=== PATIENT | female | born 1995 | race Caucasian/White ===

== ENCOUNTER 2016-07-02 02:44 | Emergency (ER) | payer SELFPAY ==
[~2016-07-02] VITALS: Ht 154.9 cm; Wt 59.1 kg
[~2016-07-02 02:44] MED LIST: BENADRYL25 M2 PO; INTUNIV1 MG PO; NORCO 325 MG-51 TAB PO; PEPCID40 MG PO; PREVPAC; PRIL40 PO; VYVANSE20 MG PO; ZOFRAN ODT4 MG PO
[2016-07-02 02:55] VITALS: BP 85/49; PULSE 92; TEMP 98.4
[2016-07-02] MEDS ORDERED: AMOXICILLIN 50500 MG PO (04:01)
== END 2016-07-02 04:45 | disposition home or self-care (01) ==
LOC: COL.ER 02:44
DX: K08.89 Other specified disorders of teeth and supporting structures (principal)

== ENCOUNTER 2016-07-06 13:32 | Emergency (ER) | payer SELFPAY ==
[~2016-07-06] VITALS: Ht 154.9 cm; Wt 59.1 kg
[~2016-07-06 13:32] MED LIST changes: +AMOXICILLIN 50500 MG PO
[2016-07-06 13:35] VITALS: TEMP 98.2
[2016-07-06] MEDS ORDERED: CLEOCIN HCL300 MG PO (14:29)
[2016-07-06 14:41] VITALS: BP 102/56; PULSE 66
== END 2016-07-06 14:41 | disposition home or self-care (01) ==
LOC: COL.ER 13:32
DX: K08.89 Other specified disorders of teeth and supporting structures (principal); F17.210 Nicotine dependence, cigarettes, uncomplicated

== ENCOUNTER 2016-08-02 15:55 | Emergency (ER) | payer SELFPAY ==
[~2016-08-02] VITALS: Ht 154.9 cm; Wt 60.0 kg
[~2016-08-02 15:55] MED LIST changes: +CLEOCIN HCL300 MG PO
[2016-08-02 16:00] VITALS: BP 91/49; TEMP 98
[2016-08-02 16:52] VITALS: PULSE 57
== END 2016-08-02 16:53 | disposition home or self-care (01) ==
LOC: COL.ER 15:55
DX: S09.90XA Unspecified injury of head, initial encounter (principal); W22.8XXA Striking against or struck by other objects, initial encounter; Y92.009 Unspecified place in unspecified non-institutional (private) residence as the place of occurrence of the external cause; R40.2412 Glasgow coma scale score 13-15, at arrival to emergency department